=== PATIENT | male | born 1980 | race Two or more races ===

== ENCOUNTER 2019-01-06 19:01 | Emergency (ER) | payer MEDICAID, OTHER ==
[~2019-01-06] VITALS: Ht 172.7 cm; Wt 72.6 kg
[2019-01-06] MEDS ORDERED: IBUPROFEN 600 MG TABLET PO ONE (20:14)
[2019-01-06] MEDS: IBUPROFEN 600 MG TABLET PO ONE (20:22)
--- NOTE | 2019-01-06 20:22 | NUR ---
BIBSELF FROM HOME. TO ER BED 3. AAOX4. NO RESP DISTRESS NOTED. BROUGHT IN ON WHEELCHAIR. C/O L KNEE AND LEFT FOOT PAIN S/P SLIP AND FALL YESTERDAY. PT DENIES HEAD TRAUMA. NOTED TH LIMITED ROM ON L KNEE. PT ABLE TO MOVE TOES AND FOOT. MD WAS AT BEDSIDE FOR EVAL. ORDERS RECEIVED, NOTED AND CARRIED OUT. XRAY AT BEDSIDE
--- NOTE | 2019-01-06 22:08 | NUR ---
Patient discharged to home in stable condition. Written and verbal after care instructions given. Patient verbalizes understanding of instruction. Pt ambulated without assistance w/ marco.
[2019-01-06 22:10] VITALS: BP 115/66
== END 2019-01-06 22:11 | disposition home or self-care (01) ==
LOC: ER 19:04
DX: M25.552 Pain in left hip (principal); M25.562 Pain in left knee; M79.672 Pain in left foot; W01.0XXA Fall on same level from slipping, tripping and stumbling without subsequent striking against object, initial encounter; Y93.89 Activity, other specified; Y92.89 Other specified places as the place of occurrence of the external cause; Y99.8 Other external cause status
CPT/HCPCS: 73502; 73564-TC; 73630-TC